=== PATIENT | female | born 1960 | race Caucasian/White ===

== ENCOUNTER 2017-10-11 15:12 | Emergency (ER) | payer BC, OTHER ==
[2017-10-11] MEDS ORDERED: ONDANSETRON HCL INJ/PF 4 MG/2 ML SDV IV ONE (15:36)
--- NOTE | 2017-10-11 15:37 | ER Document Report ---
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 Patient has been unable to hold anything down today I have greeted and performed a rapid initial assessment of this patient. A comprehensive ED assessment and evaluation of the patient, analysis of test results and completion of the medical decision making process will be conducted by additional ED providers. PHYSICAL EXAMINATION: GENERAL: Frail. HEAD: Atraumatic, normocephalic. EYES: Pupils equal round extraocular movements intact, conjunctiva are normal. ENT: Nares patent NECK: Normal range of motion LUNGS: No respiratory distress Musculoskeletal: Normal range of motion NEUROLOGICAL: Normal speech, normal gait. PSYCH: Normal mood, normal affect. SKIN: Warm, Dry, normal turgor, no rashes or lesions noted. TRAVEL OUTSIDE OF THE [place] IN LAST 30 DAYS: No - Related Data Allergies/Adverse Reactions: Penicillins Allergy (Verified 10/11/17 15:19) Physical Exam - Vital signs Vitals: Temp Pulse Resp BP Pulse Ox 99.0 F 128 H 17 111/92 H 96 10/11/17 15:18 10/11/17 15:18 10/11/17 15:18 10/11/17 15:18 10/11/17 15:18 Course - Vital Signs Vital signs: Temp Pulse Resp BP Pulse Ox 99.0 F 128 H 17 111/92 H 96 10/11/17 15:18 10/11/17 15:18 10/11/17 15:18 10/11/17 15:18 10/11/17 15:18
--- NOTE | 2017-10-11 16:20 | RADIOLOGY REPORT (SQ) ---
EXAM DESCRIPTION: CHEST PA/LAT COMPLETED DATE/TIME: 10/11/2017 4:10 pm REASON FOR STUDY: tachycardia COMPARISON: 07/31/2014 EXAM PARAMETERS: NUMBER OF VIEWS: two views TECHNIQUE: Digital Frontal and Lateral radiographic views of the chest acquired. RADIATION DOSE: NA LIMITATIONS: none FINDINGS: LUNGS AND PLEURA: No acute opacities, masses or pneumothorax. No pleural effusion. MEDIASTINUM AND HILAR STRUCTURES: No masses or contour abnormalities. HEART AND VASCULAR STRUCTURES: Heart normal size. No evidence for failure. BONES: No acute findings. Mild thoracic spondylosis. HARDWARE: None in the chest. OTHER: No other significant finding. IMPRESSION: NO SIGNIFICANT RADIOGRAPHIC FINDING IN THE CHEST. TECHNICAL DOCUMENTATION: JOB ID: [id number] [employer]- All Rights Reserved Reading location - IP/workstation name: [email or web address]
--- NOTE | 2017-10-11 16:25 | ER Document Report ---
ED GI/ - General Chief Complaint: Nausea/Vomiting/Diarrhea Stated Complaint: NAUSEA, VOMITING Time Seen by Provider: 10/11/17 15:23 Mode of Arrival: Wheelchair Information source: Patient, Relative - spouse Notes: 57-year-old female with nausea yesterday with onset of vomiting and diarrhea at 8 PM last night. She has bilious vomiting at this time. She had 2 loose diarrheas. No hematemesis or blood in the diarrhea. Temperature 101 at this time. No sore throat runny nose or cough. No chest pain or shortness of breath. No abdominal pain. She has not taken her liver and kidney transplant medications today. Allergic to penicillin. PCP Jessica Jaramillo. No headache or dizziness. She gets her labs drawn monthly. Splenectomy 1990. Bowel resection. TRAVEL OUTSIDE OF THE [place] 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 Lives with: Spouse/Significant other Family History: Reviewed & Not Pertinent Patient has suicidal ideation: No Patient has homicidal ideation: No - Past Medical History Cardiac Medical History: Reports: Hx Hypercholesterolemia Renal/ Medical History: Denies: Hx Peritoneal Dialysis Past Surgical History: Reports: Hx Abdominal Surgery - Splenectomy 1990., Hx Bowel Surgery - Bowel resection 1990, Hx Kidney (Renal Surgery) - transplant, Other - Liver transplant 1990, renal transplant located in her left lower quadrant - Immunizations Immunizations up to date: Yes History of Influenza Vaccine for 05/2017 - 10/2017 Season: Yes Review of Systems - Review of Systems Constitutional: No symptoms reported EENT: No symptoms reported Cardiovascular: No symptoms reported Respiratory: No symptoms reported Gastrointestinal: See HPI Genitourinary: No symptoms reported Female Genitourinary: No symptoms reported Musculoskeletal: No symptoms reported Skin: No symptoms reported Hematologic/Lymphatic: No symptoms reported Neurological/Psychological: No symptoms reported Physical Exam - Vital signs Vitals: Temp Pulse Resp BP Pulse Ox 99.0 F 128 H 17 111/92 H 96 10/11/17 15:18 10/11/17 15:18 10/11/17 15:18 10/11/17 15:18 10/11/17 15:18 Interpretation: Tachycardic, Febrile - General General appearance: Appears well, Alert Notes: Thin - HEENT Head: Normocephalic, Atraumatic Eyes: Normal Conjunctiva: Normal Pupils: PERRL Tympanic membrane: Normal Mucous membranes: Dry Pharynx: Erythema Neck: Supple. No: Lymphadenopathy - Respiratory Respiratory status: No respiratory distress Chest status: Nontender Breath sounds: Normal Chest palpation: Normal - Cardiovascular Rhythm: Regular Heart sounds: Normal auscultation Murmur: No - Abdominal Inspection: Normal Distension: No distension Bowel sounds: Hypoactive Tenderness: Nontender. No: Tender Organomegaly: No organomegaly - Back Back: Normal, Nontender - Extremities General upper extremity: Normal inspection, Nontender, Normal color, Normal ROM , Normal temperature General lower extremity: Normal inspection, Nontender, Normal color, Normal ROM , Normal temperature, Normal weight bearing. No: Osiel's sign - Neurological Neuro grossly intact: Yes Cognition: Normal Orientation: AAOx4 [place] Coma Scale Eye Opening: Spontaneous [place] Coma Scale Verbal: Oriented [place] Coma Scale Motor: Obeys Commands [place] Coma Scale Total: 15 Speech: Normal Motor strength normal: LUE, RUE, LLE, RLE Sensory: Normal - Psychological Associated symptoms: Normal affect, Normal mood - Skin Skin Temperature: Warm Skin Moisture: Dry Skin Color: Normal Skin irregularity: negative: Rash Course - Re-evaluation Re-evalutation: 10/11/17 19:02 Patient drinking ashish jesica and has been up to the bathroom for the urinalysis she feels better and she has not had any dry heaves or vomiting while here. Her heart rate is 106-112, has not taken her metoprolol last night or today. I gave her 25 mg of metoprolol p.o. at the bedside. Chest x-ray is negative. Urinalysis is negative. Abdominal exam is negative. There is no source of infection. I will prescribe Zofran and give the patient lab work and she will follow-up with Jessica Jaramillo tomorrow. 10/11/17 19:44 - Vital Signs Vital signs: Temp Pulse Resp BP Pulse Ox 99.0 F 128 H 20 162/82 H 98 10/11/17 19:35 10/11/17 15:18 10/11/17 19:00 10/11/17 18:01 10/11/17 19:00 - Laboratory Result Diagrams: 10/11/17 17:56 10/11/17 16:15 Laboratory results interpreted by me: 10/11/17 10/11/17 10/11/17 16:15 16:28 17:56 RDW 14.7 H Seg Neuts % (Manual) 86 H Lymphocytes % (Manual) 3 L Abs Neuts (Manual) 9.2 H Abs Lymphs (Manual) 0.3 L BUN 23 H Est GFR (Non-Af Amer) 59 L Glucose 147 H POC Glucose 138 H Urine Blood 10/11/17 18:08 RDW Seg Neuts % (Manual) Lymphocytes % (Manual) Abs Neuts (Manual) Abs Lymphs (Manual) BUN Est GFR (Non-Af Amer) Glucose POC Glucose Urine Blood SMALL H Discharge - Discharge Clinical Impression: Vomiting, Diarrhea, Dehydration, Fever, Elevated glucose Condition: Good Disposition: HOME, SELF-CARE Instructions: Diarrhea, Nonspecific ([facility]), Fever ([facility]), Intravenous (IV) Fluids ([facility]), Vomiting ([facility]) Additional Instructions: Continue oral hydrating at home Return to the emergency room for any vomiting or diarrhea or fever. Return to the emergency room for any abdominal pain. Copy of lab were given to you for your primary care doctor See Jessica Jaramillo tomorrow for recheck Urine culture is pending Blood cultures pending Prescriptions: Ondansetron [Zofran Odt] 8 mg PO Q6HP PRN #20 tab.rapdis PRN Reason: Referrals: JESSICA JARAMILLO, [facility] APPRENTICE [Primary Care Provider] - Follow up tomorrow
[2017-10-11] MEDS: NORMAL SALINE 1000 ML 1,000 ML IV PRN ×2 (16:39→19:55)
[2017-10-11 16:50] LABS: INTERNATIONAL RATION (INR) 0.88; PROTHROMBIN TIME 12.6 SEC (11.4-15.4)
[2017-10-11 17:02] LABS: ALANINE AMINOTRANSFERASE 28 U/L (9-52); ALBUMIN 4.3 g/dL (3.5-5.0); ALKALINE PHOSPHATASE 76 U/L (38-126); ANION GAP 12 (5-19); ASPARTATE AMINO TRANSFERASE 30 U/L (14-36); BILIRUBIN,DIRECT 0.2 mg/dL (0.0-0.4); BILIRUBIN,TOTAL 0.4 mg/dL (0.2-1.3); BLOOD UREA NITROGEN 23 mg/dL (7-20); CALCIUM 9.9 mg/dL (8.4-10.2); CARBON DIOXIDE 25 mmol/L (22-30); CHLORIDE 105 mmol/L (98-107); GLUCOSE 147 mg/dL (75-110); SODIUM 141.9 mmol/L (137-145); TOTAL PROTEIN 7.2 g/dL (6.3-8.2)
[2017-10-11 18:05] LABS: VENOUS BLOOD PCO2 46.4 mmHg (35-63); VENOUS BLOOD PH 7.35 (7.30-7.42)
[2017-10-11] MEDS ORDERED: NORMAL SALINE 1000 ML 1,000 ML IV ONE (18:07)
[2017-10-11 18:09] LABS: HEMATOCRIT 39.7 % (36.0-47.0); HEMOGLOBIN 12.9 g/dL (12.0-15.5); MEAN CORPUSCULAR HEMOGLOBIN 27.4 pg (27.0-33.4); MEAN CORPUSCULAR HGB CONC 32.5 g/dL (32.0-36.0); MEAN CORPUSCULAR VOLUME 84 fl (80-97); PLATELET COUNT 196 10^3/uL (150-450); RED CELL DISTRIBUTION WIDTH 14.7 % (11.5-14.0); WHITE BLOOD COUNT 10.2 10^3/uL (4.0-10.5)
[2017-10-11] MEDS ORDERED: LORAZEPAM INJ 2 MG/1 ML VIAL IV ONE ×2 (18:13→18:41)
[2017-10-11 18:25] LABS: APPEARANCE,URINE SLIGHTLY-CLOUDY; BILIRUBIN,URINE NEGATIVE (NEGATIVE); COLOR,URINE YELLOW; GLUCOSE, URINE NEGATIVE (NEGATIVE); KETONES,URINE NEGATIVE (NEGATIVE); LEUKOCYTE ESTERASE,URINE NEGATIVE (NEGATIVE); NITRITE,URINE NEGATIVE (NEGATIVE); PROTEIN,URINE NEGATIVE (NEGATIVE); URINE SPECIFIC GRAVITY 1.013; UROBILINOGEN,URINE NEGATIVE mg/dL (<2.0)
[2017-10-11 18:30] LABS: ABSOLUTE LYMPHOCYTES# (MANUAL) 0.3 10^3/uL (0.5-4.7); ABSOLUTE MONOCYTES # (MANUAL) 0.7 10^3/uL (0.1-1.4); ABSOLUTE NEUTROPHILS# (MANUAL) 9.2 10^3/uL (1.7-8.2); BAND NEUTROPHILS % (MANUAL) 4 % (3-5); BASOPHILS % (MANUAL) 0 % (0-2); EOSINOPHILS % (MANUAL) 0 % (0-6); LYMPHOCYTES % (MANUAL) 3 % (13-45); MONOCYTES % (MANUAL) 7 % (3-13); SEGMENTED NEUTROPHILS % (MAN) 86 % (42-78); TOTAL CELLS COUNTED 100
[2017-10-11 18:32] LABS: ANISOCYTOSIS SLIGHT; OVALOCYTES SLIGHT; PLATELET COMMENT ADEQUATE; PLATELET LARGE PRESENT; POIKILOCYTOSIS SLIGHT; TOXIC VACUOLATION PRESENT
[2017-10-11 18:40] LABS: CREATINE KINASE MB 0.48 ng/mL (<4.55); TROPONIN I < 0.012 ng/mL
[2017-10-11 20:02] VITALS: BP 129/80
--- NOTE | 2017-10-11 20:43 | EKG REPORT ---
SEVERITY:- ABNORMAL ECG - SINUS TACHYCARDIA MULTIPLE VENTRICULAR PREMATURE COMPLEXES BORDERLINE LEFT AXIS DEVIATION : Confirmed by: Gibran Polanco MD 11-Oct-2017 20:43:44
== END 2017-10-11 20:00 | disposition home or self-care (01) ==
LOC: ER 15:12
DX: R11.2 Nausea with vomiting, unspecified (principal); R19.7 Diarrhea, unspecified; E86.0 Dehydration; R50.9 Fever, unspecified; R73.9 Hyperglycemia, unspecified
CPT/HCPCS: 93005; 99284; 96361; 96374; 36415; 87040; 87086; 82553; 82962; 82550; 85025; 85610; 80053; 81001; 84484; 82803; 83605; 71046; 93010; J2405; J7030